=== PATIENT | male | born 1980 | race Caucasian/White ===

== ENCOUNTER 2022-06-21 00:03 | Emergency (ER) | payer OTHER, SELFPAY ==
[2022-06-21] MEDS ORDERED: Boostrix 0.5 ML (Tdap) VIAL (>/=7 yrs of age) ONE (03:32)
== END 2022-06-21 03:34 | disposition home or self-care (01) ==
LOC: CSHERS 00:03
DX: S01.01XA Laceration without foreign body of scalp, initial encounter (principal); Z23 Encounter for immunization; W22.8XXA Striking against or struck by other objects, initial encounter
CPT/HCPCS: 12001; 90471; 90715

== ENCOUNTER 2022-08-11 07:59 | Emergency (ER) | payer BC, OTHER ==
[2022-08-11] MEDS ORDERED: Fluorescein Opthalmic Strip ONE (08:11)
[2022-08-11] MEDS ORDERED: Tetracaine 0.5% PF 4 ML BOT ONE (08:12)
== END 2022-08-11 08:40 | disposition home or self-care (01) ==
LOC: CSHERS 07:59
DX: H16.001 Unspecified corneal ulcer, right eye (principal); R03.0 Elevated blood-pressure reading, without diagnosis of hypertension
CPT/HCPCS: 99283